=== PATIENT | female | born 1965 | race Caucasian/White ===

== ENCOUNTER → 2017-10-14 | Outpatient (CLI) | payer OTHER ==
[2014-07-31 14:53] VITALS: BP 116/68
[~2017-10-14] MED LIST: AMIT10TA PO; MULT1TAB52 PO; TOPI25CA11 PO
--- NOTE | 2017-10-14 10:48 | RAD ---
DATE: 10/14/2017 EXAM: BREAST RIGHT, DIGITAL DIAGNOSTIC RT diagnostic film to the right breast mammogram and right breast ultrasound HISTORY: Right breast pain COMPARISON: Screening mammogram 05/24/2013 The breast parenchyma shows scattered fibroglandular densities. Breast parenchyma level B. FINDINGS: Right breast mammogram: Full field digital 2-D CC and MLO views of the right breast were obtained. No suspicious mass, calcification or architectural distortion. Patient will proceed to right breast ultrasound for evaluation of right breast pain. Right breast ultrasound: In the area of patient reported breast pain in the upper outer quadrant, no suspicious mass or fluid collection. IMPRESSION: No evidence of malignancy. BI-RADS CATEGORY: 1 NEGATIVE RECOMMENDED FOLLOW-UP: CLIN FOLLOW UP IMAGING CLINICALLY INDICATED PQRS compliance statement: Patient information was entered into a reminder system with a target due date for the next mammogram. Mammography is a sensitive method for finding small breast cancers, but it does not detect them all and is not a substitute for careful clinical examination. A negative mammogram does not negate a clinically suspicious finding and should not result in delay in biopsying a clinically suspicious abnormality. "Our facility is accredited by the [employer] Mammography Program."
== END | disposition home or self-care (01) ==
LOC: MAMMO 08:58
PROVIDERS: ATTEND Nurse Practitioner Family
DX: N64.4 Mastodynia (principal)
CPT/HCPCS: 76641; G0206; 77065